=== PATIENT | female | born 1985 | race Two or more races ===

== ENCOUNTER 2021-07-09 21:27 | Emergency (ER) | payer OTHER ==
[~2021-07-09] VITALS: Ht 165.1 cm; Wt 63.5 kg
[2021-07-09 21:51] VITALS: BP 119/66
--- NOTE | 2021-07-09 22:00 | NUR ---
TO ER BED 9. BIBFAMILY FOR FOREHEAD LAC , FROM HITTING HEAD ON CHAIR AT WORK. WOUND IS OPEN TO AIR , 1/2 INCH, WELL APPROXIMATED. PT DENIES KO. CONNECTED TO MONITOR.
--- NOTE | 2021-07-09 22:15 | NUR ---
TELESCOPE OPERATOR AT BEDSIDE FOR WOUND CLEANING
--- NOTE | 2021-07-09 22:52 | NUR ---
AT BEDSIDE FOR WOUND REPAIR
[2021-07-09] MEDS: LIDOCAINE 1%-EPI 1:100,000 20 ML VIAL TP ONE (22:57)
[2021-07-09] MEDS ORDERED: TDAP [DIPH/PERTUSSIS/TET] 0.5 ML VIAL IM ONE (22:58)
[2021-07-09] MEDS: TDAP [DIPH/PERTUSSIS/TET] 0.5 ML VIAL IM ONE (23:07)
--- NOTE | 2021-07-09 23:07 | NUR ---
Patient discharged to home in stable condition. Written and verbal after care instructions given. Patient verbalizes understanding of instruction.
== END 2021-07-10 00:11 | disposition home or self-care (01) ==
LOC: ER 21:38
DX: S01.21XA Laceration without foreign body of nose, initial encounter (principal); W22.8XXA Striking against or struck by other objects, initial encounter; Y93.89 Activity, other specified; Y92.89 Other specified places as the place of occurrence of the external cause; Y99.0 Civilian activity done for income or pay
CPT/HCPCS: 12011; 90471; 90715; 99283; A6403

== ENCOUNTER 2021-07-16 16:33 | Emergency (ER) | payer OTHER ==
[~2021-07-16] VITALS: Ht 165.1 cm; Wt 64.0 kg
[2021-07-16 16:40] VITALS: BP 109/73
--- NOTE | 2021-07-16 17:20 | NUR ---
SUTURE REMOVED BY ANGELO CHRISTIANSON.
--- NOTE | 2021-07-16 17:27 | NUR ---
Patient discharged to home in stable condition. Written and verbal after care instructions given. Patient verbalizes understanding of instruction.
== END 2021-07-16 17:28 | disposition home or self-care (01) ==
LOC: ER 16:34
DX: S01.21XD Laceration without foreign body of nose, subsequent encounter (principal); Z48.02 Encounter for removal of sutures; X58.XXXD Exposure to other specified factors, subsequent encounter